=== PATIENT | male | born 1955 | race Caucasian/White ===

== ENCOUNTER → 2021-01-19 | Outpatient (CLI) | payer OTHER | END | disposition home or self-care (01) | LOC: COVID19 15:58 | PROVIDERS: ATTEND Internal Medicine | DX: Z11.52 Encounter for screening for COVID-19 (principal) ==

== ENCOUNTER 2023-05-06 19:51 | Emergency (ER) | payer OTHER ==
[~2023-05-06] VITALS: Ht 180.3 cm; Wt 113.4 kg
[2023-05-06] MEDS ORDERED: HYDROmorphONE Hydrochloride 0.5 MG/0.5 ML SYRINGE IV ONE ×2 (20:25→21:30)
[2023-05-06] MEDS ORDERED: Ondansetron Hydrochloride 4 MG/2 ML VIAL IV ONE (20:25)
[2023-05-06] MEDS ORDERED: Ketorolac Tromethamine 30 MG/ML VIAL IV ONE (22:00)
[2023-05-06] MEDS ORDERED: HYDROCODONE-AC1 EAC1 PO (22:54)
[2023-05-06] MEDS ORDERED: Acetaminophen/Hydrocodone 5 MG/325 MG TABLET PO ONE (23:00)
== END 2023-05-06 23:07 | disposition home or self-care (01) ==
LOC: ED 19:51
DX: M25.562 Pain in left knee (principal); Z88.5 Allergy status to narcotic agent; X50.1XXA Overexertion from prolonged static or awkward postures, initial encounter; Y93.89 Activity, other specified; Y92.89 Other specified places as the place of occurrence of the external cause; Y99.8 Other external cause status